=== PATIENT | female | born 1990 | race Caucasian/White ===

== ENCOUNTER 2018-02-15 14:51 | Outpatient (CLI) | payer OTHER | END 2018-02-15 16:55 | disposition home or self-care (01) | LOC: OBT 14:51 → L-D 14:51 → OBT 16:55 | DX: O62.9 Abnormality of forces of labor, unspecified (principal); Z3A.35 35 weeks gestation of pregnancy | CPT/HCPCS: 76818 ==

== ENCOUNTER 2018-03-01 16:14 | Outpatient (CLI) | payer OTHER ==
[2018-03-01 17:38] LABS: ADD UMIC YES; UR ASCORBIC ACID NEGATIVE (NEGATIVE); UR BACTERIA FEW /HPF (NONE SEEN); UR BILIRUBIN (Dip) NEGATIVE (NEGATIVE); UR BLOOD (Dip) 1+ mg/dL (NEGATIVE); UR CLARITY SLIGHTLY CLOUDY (CLEAR); UR COLOR YELLOW (YELLOW); UR GLUCOSE (Dip) NEGATIVE (NEGATIVE); UR KETONES (Dip) NEGATIVE (NEGATIVE); UR LEUKOCYTE ESTERASE (Dip) 1+ Leu/ul (NEGATIVE); UR MUCUS FEW /HPF (NONE SEEN); UR NITRITE (Dip) POSITIVE (NEGATIVE); UR RBC 1 /HPF (0-5); UR SQUAMOUS EPITHELIAL CELL FEW /HPF (FEW); UR TOTAL PROTEIN (Dip) 1+ mg/dl (NEGATIVE); UR UROBILINOGEN (Dip) 2+ mg/dL (NEGATIVE); UR WBC 19 /HPF (0-5)
== END 2018-03-01 20:48 | disposition home or self-care (01) ==
LOC: OBT 16:14 → L-D 16:14 → OBT 20:48
DX: O62.9 Abnormality of forces of labor, unspecified (principal); Z3A.37 37 weeks gestation of pregnancy
CPT/HCPCS: 76818; 81001; 87086

== ENCOUNTER 2018-03-17 20:50 | Inpatient (IN) | payer OTHER ==
[2018-03-17] MEDS ORDERED: OXYCODONE/ASPIRIN (4.88/325) TAB PO (23:00)
[2018-03-17] MEDS ORDERED: OXYTOCIN 30 UNITS/LR 500 ML IV (23:00)
[2018-03-17] MEDS ORDERED: CARBOPROST 250 MCG INJ IM (23:00)
[2018-03-17] MEDS ORDERED: IBUPROFEN 600 MG TAB PO (23:00)
[2018-03-17] MEDS ORDERED: BUTORPHANOL 2 MG INJ IV (23:00)
[2018-03-17] MEDS ORDERED: LIDOCAINE 1% (MPF) 30 ML INJ INJ (23:00)
[2018-03-17] MEDS ORDERED: METHYLERGONOVINE 0.2 MG INJ IM (23:00)
[2018-03-17] MEDS ORDERED: MISOPROSTOL 200 MCG TAB PR (23:00)
[2018-03-17 23:04] LABS: ADD MAN DIFF? NO
[2018-03-17 23:07] LABS: WHITE BLOOD COUNT 8.1 10^3/ul (4.8-10.8)
[2018-03-17 23:07] LABS: ABNORMAL IP MESSAGE 1; BASOPHIL # 0.1 10^3/ul (0.0-0.1); BASOPHILS % 0.6 % (0.0-2.0); EOSINOPHILS # 0.1 10^3/ul (0.0-0.5); EOSINOPHILS % 0.6 % (0.0-7.0); HEMATOCRIT 31.5 % (37.0-47.0); HEMOGLOBIN 10.2 g/dl (12.0-16.0); LYMPHOCYTES # 2.6 10^3/ul (0.8-2.9); LYMPHOCYTES % 32.5 % (15.0-51.0); MEAN CORPUSCULAR HEMOGLOBIN 25.7 pg (29.0-33.0); MEAN CORPUSCULAR HGB CONC 32.4 g/dl (32.0-37.0); MEAN CORPUSCULAR VOLUME 79.3 fl (82.0-101.0); MONOCYTE # 0.7 10^3/ul (0.3-0.9); MONOCYTES % 8.4 % (0.0-11.0); NEUTROPHIL # 4.6 10^3/ul (1.6-7.5); NEUTROPHILS % 57.4 % (39.0-77.0); PLATELET COUNT 108 10^3/UL (140-415); RED BLOOD COUNT 3.97 10^6/ul (4.20-5.40); RED CELL DISTRIBUTION WIDTH 14.6 % (11.5-14.5)
[2018-03-17 23:11] LABS: POSITIVE DIFF @See below
[2018-03-17] MEDS: LACTATED RINGER'S 1,000 ML IV* (23:18)
[2018-03-17 23:26] LABS: PROTIME 13.3 Sec (11.9-14.9)
[2018-03-17 23:27] LABS: PARTIAL THROMBOPLASTIN TIME 27.9 Sec (25.0-35.0)
[2018-03-18 00:02] LABS: HEPATITIS B SURFACE ANTIGEN NEGATIVE (NEGATIVE)
[2018-03-18] MEDS: OXYTOCIN 30 UNITS/LR 500 ML IV ×4 (00:38→13:52)
[2018-03-18] MEDS: LACTATED RINGER'S 1,000 ML IV* ×4 (04:23→21:18)
[2018-03-18] MEDS ORDERED: ZOLPIDEM 5 MG TAB PO (07:00)
[2018-03-18] MEDS ORDERED: KETOROLAC 30 MG INJ IV (07:00)
[2018-03-18] MEDS ORDERED: NALOXONE (0.4 MG/ML) INJ IV (07:00)
[2018-03-18] MEDS ORDERED: HYDROmorphONE 0.5 MG/0.5 ML SYG IV ×2 (07:00)
[2018-03-18] MEDS ORDERED: DIPHENHYDRAMINE 50 MG INJ IV ×2 (07:00→13:30)
[2018-03-18] MEDS ORDERED: FENTAnyl 2MCG/ML-ROPIV 0.2% 100 ML BAG EPI (07:00)
[2018-03-18] MEDS ORDERED: ONDANSETRON 4 MG INJ IV ×2 (07:00→13:30)
[2018-03-18] MEDS ORDERED: OXYTOCIN 30 UNITS/LR 500 ML IV ×2 (09:30→13:30)
[2018-03-18] MEDS ORDERED: BENZOCAINE 20% 56 ML SPRAY TOP (13:30)
[2018-03-18] MEDS ORDERED: DIBUCAINE 1% 30 GM OINT PR (13:30)
[2018-03-18] MEDS ORDERED: WITCH HAZEL/GLYCERIN PAD PR (13:30)
[2018-03-18] MEDS ORDERED: MAGNESIUM HYDROXIDE 30ML CUP PO (13:30)
[2018-03-18] MEDS ORDERED: NA PHOSPHATE/BIPHOS 133 ML ENEMA PR (13:30)
[2018-03-18] MEDS ORDERED: HYDROCODONE/APAP (5/325) TAB PO (13:30)
[2018-03-18] MEDS ORDERED: ONDANSETRON 4 MG TAB PO (13:30)
[2018-03-18] MEDS ORDERED: SENNA/DOCUSATE NA (8.6MG/50MG) TAB PO (13:30)
[2018-03-18] MEDS ORDERED: CARBOPROST 250 MCG INJ IM (13:30)
[2018-03-18] MEDS ORDERED: MISOPROSTOL 200 MCG TAB PR (13:30)
[2018-03-18] MEDS ORDERED: DIPHENHYDRAMINE 25 MG CAP PO (13:30)
[2018-03-18] MEDS: HYDROCODONE/APAP (5/325) TAB PO (16:25)
[2018-03-18] MEDS: SENNA/DOCUSATE NA (8.6MG/50MG) TAB PO (21:23)
[2018-03-18 22:27] LABS: RAPID PLASMA REAGIN NONREACTIVE (NR)
[2018-03-19] MEDS: LACTATED RINGER'S 1,000 ML IV* ×3 (05:18→21:18)
[2018-03-19] MEDS: IBUPROFEN 600 MG TAB PO ×4 (05:57→17:56)
[2018-03-19 07:18] LABS: ADD MAN DIFF? NO
[2018-03-19 07:22] LABS: ABNORMAL IP MESSAGE 1; BASOPHIL # 0.1 10^3/ul (0.0-0.1); BASOPHILS % 0.5 % (0.0-2.0); EOSINOPHILS # 0.1 10^3/ul (0.0-0.5); EOSINOPHILS % 0.7 % (0.0-7.0); HEMATOCRIT 26.3 % (37.0-47.0); HEMOGLOBIN 8.3 g/dl (12.0-16.0); LYMPHOCYTES # 2.1 10^3/ul (0.8-2.9); MEAN CORPUSCULAR HEMOGLOBIN 25.2 pg (29.0-33.0); MEAN CORPUSCULAR HGB CONC 31.6 g/dl (32.0-37.0); MEAN CORPUSCULAR VOLUME 79.7 fl (82.0-101.0); MONOCYTE # 0.9 10^3/ul (0.3-0.9); MONOCYTES % 8.4 % (0.0-11.0); NEUTROPHIL # 7.4 10^3/ul (1.6-7.5); NEUTROPHILS % 69.8 % (39.0-77.0); PLATELET COUNT 98 10^3/UL (140-415); RED CELL DISTRIBUTION WIDTH 14.7 % (11.5-14.5)
[2018-03-19 07:22] LABS: WHITE BLOOD COUNT 10.6 10^3/ul (4.8-10.8)
[2018-03-19 07:53] LABS: POSITIVE DIFF @See below
[2018-03-19] MEDS ORDERED: IBUPROFEN 600 MG TAB PO (12:00)
[2018-03-19] MEDS: SENNA/DOCUSATE NA (8.6MG/50MG) TAB PO ×2 (12:09→20:54)
[2018-03-19] MEDS: LANOLIN 7 GM TUBE TOP (17:56)
[2018-03-20] MEDS: IBUPROFEN 600 MG TAB PO ×3 (06:18→12:20)
[2018-03-20] MEDS: MEASLES,MUMPS,RUBELLA VACCINE INJ SC* (09:00)
[2018-03-20] MEDS: VARICELLA VACCINE LIVE/PF 1,350 UNIT/0.5 ML ML SC* (09:00)
[2018-03-20] MEDS: SENNA/DOCUSATE NA (8.6MG/50MG) TAB PO (10:54)
[2018-03-20] MEDS: DIPHTH/TET/ACEL PERTUSS (ADULT) 0.5 ML VIAL IM* (10:55)
== END 2018-03-20 14:35 | disposition home or self-care (01) | DRG 775 ==
LOC: OBT 20:50 → PP1 03-18 14:48 → L-D 20:51 → OBT 21:30 → L-D 21:30
PROVIDERS: Specialist
PROC: 10E0XZZ Delivery of Products of Conception, External Approach (ICD-10-PCS; principal; 2018-03-18)
PROC: 3E033VJ Introduction of Other Hormone into Peripheral Vein, Percutaneous Approach (ICD-10-PCS; 2018-03-18)
DX: O48.0 Post-term pregnancy (principal); Z3A.40 40 weeks gestation of pregnancy; O69.81X0 Labor and delivery complicated by cord around neck, without compression, not applicable or unspecified; Z37.0 Single live birth
CPT/HCPCS: 62319; 76815; 85025; 85610; 85730; 86592; 86850; 86900; 86901; 87340; 90715